=== PATIENT | male | born 1975 | race Caucasian/White ===

== ENCOUNTER → 2018-06-12 | Outpatient (CLI) | payer OTHER ==
[~2018-06-12] MED LIST: ASPIRIN325 PO; HYDROCODONE-AP1 EAC6 PO; LISINOPRIL20 MG PO; MULTIPLE VITAM1 EAC2 PO; ROXICODONE5 M2 PO
--- NOTE | 2018-06-16 20:31 | NUR ---
PT ALERT AND ORIENTED X 4. RECEIVED PO OXYCODONE AND HYDROCODONE FOR PAIN CONTROL FOR RIGHT LEG. DRESSING-C/D/I. PT ON OXYGEN @ 2 L/NC. ABLE TO URINATE WITHOUT ANY DIFFICULTY DURING SHIFT. PHYSICIAN INFORMED OF ELEVATED BLOOD PRESSURE. LAB ORDERED AND PROCEDURE COMPLETED @ 1615. PHYSICIAN INFORMED OF RESULTS. IV REMOVED. DISCHARGE INSTRUCTION GIVEN ALONG WITH PRESCRIPTIONS. PT LEFT @ 1730 WITH SPOUSE AND PERSONAL BELONGINGS TO LEAVE BY PRIVATE CAR.
== END ==
LOC: M.CT 12:00
DX: S82.141A Displaced bicondylar fracture of right tibia, initial encounter for closed fracture (principal); X58.XXXA Exposure to other specified factors, initial encounter; Y93.89 Activity, other specified; Y92.89 Other specified places as the place of occurrence of the external cause; Y99.8 Other external cause status

== ENCOUNTER 2018-06-15 10:02 | Observation (INO) | payer OTHER ==
[~2018-06-15] VITALS: Ht 180.3 cm; Wt 10.0 kg
[2018-06-15] MEDS ORDERED: LISINOPRIL20 MG PO (10:07)
[2018-06-15] MEDS ORDERED: MULTIPLE VITAM1 EAC2 PO (10:08)
[2018-06-15 17:07] VITALS: BP 157/95
--- NOTE | 2018-06-15 18:00 | EKG ---
[place] [address] ELECTROCARDIOGRAM REPORT Name: RAKESH LOONEY Room: [address] M.R.#: [id number] Admission: 06/15/18 Attend Phys: John Draper Discharge: Date of : 79 Report #: [id number] THIS REPORT FOR: //name// [facility] Test Date: 2018-06-15 Test Time: 10:24:56 Pat Name: RAKESH LOONEY Department: Room: [facility] Gender: M Instructor Physical Education: : 1975 Requested By: David Butts Order Number: [id number] Sudheer MD: Len Hyman Measurements Intervals [place] Rate: 102 P: 77 FL: 143 QRS: 117 QRSD: 92 T: 58 QT: 340 QTc: 443 Interpretive Statements Sinus tachycardia Left posterior fascicular block ST elev, probable normal early repol pattern No previous ECG available for comparison Electronically Signed On 06-15-2018 18:00:15 CDT by Len Hyman [email or web address] <ELECTRONICALLY SIGNED> By: Len Hyman MD, [facility] 06/15/18 1800 1024 1024 Len Hyman MD, FACC /EPI
[2018-06-15 19:15] VITALS: BP 143/90
[2018-06-15 23:33] VITALS: BP 147/84
[2018-06-16] VITALS: BP 170/84
[2018-06-16 04:00] VITALS: BP 153/71
[2018-06-16 05:18] LABS: HEMOGLOBIN 15.9 gm/dL (14.0-18.0)
[2018-06-16 08:00] VITALS: BP 156/99
[2018-06-16] MEDS ORDERED: ASPIRIN325 PO (11:38)
[2018-06-16] MEDS ORDERED: ROXICODONE5 M2 PO (11:40)
[2018-06-16] MEDS ORDERED: HYDROCODONE-AP1 EAC6 PO (11:43)
[2018-06-16 12:23] LABS: CALCIUM 9.1 mg/dL (8.5-10.1); CREATININE 1.1 mg/dL (0.6-1.3); POTASSIUM 3.8 mmol/L (3.5-5.1)
[2018-06-16 17:00] VITALS: BP 156/99
[2018-06-16 17:30] VITALS: BP 156/99
--- NOTE | 2018-06-24 08:56 | OP ---
[address] [address] OPERATIVE REPORT Name: RAKESH LOONEY Room: [address] Trung Helms#: [id number] Admission: 06/15/18 Attend Phys: John Draper Discharge: 06/16/18 Date of : 79 Report #: [id number] THIS REPORT FOR: //name// CC: Wendy Patricia DATE OF SERVICE: 06/15/2018 PREOPERATIVE DIAGNOSIS: Right tibial plateau fracture, split depression. POSTOPERATIVE DIAGNOSES: Right tibial plateau fracture, split depression with longitudinal tear lateral meniscus. PROCEDURE: 1. Open reduction and internal fixation of right tibial plateau fracture, lateral split depression, intra-articular. 2. Repair of lateral meniscus. 3. Physician directed fluoroscopy. SURGEON: David Butts DO. BEAD FORMING MACHINE SET UP OPERATOR: Thiago Murphy DO. ANESTHESIA: General. ANTIBIOTICS: Ancef IV preoperatively. FLUIDS: 1000 mL lactated Ringer's. BLOOD LOSS: 100 mL. COMPLICATIONS: None. SPECIMENS: None. DRAINS: None. CONDITION: The patient is stable to PACU. IMPLANTS: Synthes variable angle tibial plateau locking plate with one cortical screw and three unicortical locking screws proximally and 2 cortical screws distally. INDICATIONS: The patient is a 42-year-old male who originally saw my partner, Dr. Houston for right leg injury. He had been running, twisted his leg, had pain, diagnosed with a plateau fracture. My partner, Dr. Houston contacted me in regards [facility] [address] [place] [address] OPERATIVE REPORT Name: RAKESH LOONEY Room: [address] Analia#: [id number] Admission: 06/15/18 Attend Phys: John Draper Discharge: 06/16/18 Date of : 79 Report #: [id number] to taking over his care. We both agreed that operative fixation of the fracture will be the recommended treatment. I went over with him today in detail the risks and complications associated with surgery and the plan for surgery in detail and addressed any questions he had, stated satisfaction. He wished to proceed and gave consent. DESCRIPTION OF PROCEDURE: I marked the right lower extremity in the presence of the operative team members, everyone agreed this was correct. He was taken to the operative suite where briefing was performed indicating correct patient, procedure, site, antibiotics and implants were present and sterile. All team members agreed. He was transferred over to the operative table in supine position, well-padded, and secured. General anesthetic administered. A well-padded tourniquet was placed proximally on the right lower extremity, which was then sterilely prepped and draped in standard fashion. Timeout performed indicating correct patient, procedure, site, antibiotics and implants were present and sterile. All team members agreed. Francisco out our incision curvilinear centered over Gerdy's tubercle. We Esmarch the extremity and inflated to 290 mmHg. Scalpel through the skin, dissection was taken down to the fascial layer, which was incised with a second scalpel in line with the incision and sharply off of Gerdy's tubercle and full thickness layers. We visualized our split, worked delineating this so that we could get a reduction. We were extraperiosteal where we could be. Another scalpel was then used to perform a sub-meniscal arthrotomy, leaving plenty of capsule layer to close on the distal segment. There was a longitudinal tear within the meniscus with minimal displacement. We repaired this with horizontal mattress 0 Vicryl sutures and then 3 more horizontal mattress sutures through this and tagged for later repair back to capsule. We then at that point in time looked at our joint line through our arthrotomy and working through our splint. We were able to see that central fragment of joint depression and we were able to pop this up into its anatomic position and hold in place with a K-wire. We then reduced our splint and held this in position with a K-wire, brought in C-arm, confirmed on multiplanar imaging, it was appropriate. At that point in time, we fashioned our plate and confirmed that the plate was in appropriate position on multiplanar C-arm imaging and began by placing the first good bicortical purchase distally. This sucked the plate down to bone nicely and had excellent purchase. We then began by placing a cortical screw to suck the plate and gain compression through the fracture proximally. Once we had drilled for the screw and placed the screw before we got to the other aspect of bone, we removed any K-wires holding in place so that we were able to get compression, screw had excellent purchase and we were able to gain compression. At that point in time, we then placed 3 unicortical locking screws sitting under the central depressed fragment that we had elevated back up. We placed one remaining cortical screw distally. All hardware was in place. At this time, we removed any K-wires, clamps and took final C-arm imaging showing excellent reduction of the fracture, maintenance of articular surface and saved all images. Dismissed C-arm, let down tourniquet. Total tourniquet time was 52 minutes. Maintained hemostasis, [facility] [address] [place] [address] OPERATIVE REPORT Name: RAKESH LOONEY Room: [address]#: [id number] Admission: 06/15/18 Attend Phys: John Draper Discharge: 06/16/18 Date of : 79 Report #: [id number] thoroughly irrigated throughout the joint with normal saline. The capsule was then closed with the previously tagged sutures in a free needle to the distal aspect of the capsule horizontal mattress fashion and then oversewn with Vicryl [id number] interrupted. We took the range of motion and that repair was stable. We irrigated again with normal saline throughout the surgical site and closed over the fascial layer approximated with 0 Vicryl [id number] interrupted. We had full closure of the fascia over Gerdy's tubercle and a full closure of the plate. We then loosely closed distally and also had fenestrations within the fascia to take pressure off of the anterolateral compartment. We irrigated the subcutaneous layer with normal saline and closed with 2-0 Monocryl buried deep and a running subcuticular stitch for Stratafix and Dermabond glue over the skin. Debriefing was performed. We confirmed procedure, blood loss and all counts were correct and final. All team members agreed. Sterile silver impregnated dressing was applied and he was extubated and transferred off the operating table, taken to PACU, stable. POSTOPERATIVE COURSE AND EVALUATION: I spoke with his and mother per his wishes, addressed any questions they had. They were very thankful for my time and effort. He was resting in the PACU, stable vital signs. Pain controlled. Neurovascularly, he was intact in that extremity with no change from the preoperative exam. His compartments were soft and compressible, appropriately tender for his postoperative course and he had no pain with passive range of motion about the ankle and toes. PACU film shows stable internal fixation and reduction. He is nonweightbearing. Range of motion will begin, pain control, DVT prophylaxis be pharmacological and mechanical. Anticipate discharge tomorrow. <ELECTRONICALLY SIGNED> By: David Butts DO 06/24/18 [id number] Butts DO /nt
== END 2018-06-16 17:30 | disposition home or self-care (01) ==
LOC: M.SUR → M.TBA-CV 14:50 → M.ORTHSURG 16:21
PROVIDERS: Internal Medicine; Orthopaedic Surgery; ADMIT Internal Medicine
DX: S82.141A Displaced bicondylar fracture of right tibia, initial encounter for closed fracture (principal); S83.281A Other tear of lateral meniscus, current injury, right knee, initial encounter; I10 Essential (primary) hypertension; Z47.1 Aftercare following joint replacement surgery; W18.30XA Fall on same level, unspecified, initial encounter; Y93.89 Activity, other specified; Y92.89 Other specified places as the place of occurrence of the external cause